=== PATIENT | male | born 1995 | race Caucasian/White ===

== ENCOUNTER 2017-06-30 01:28 | Emergency (ER) | payer BC ==
[~2017-06-30] VITALS: Ht 182.9 cm; Wt 64.0 kg
[2017-06-30 01:32] VITALS: TEMP 36.7; Ht 182.9 cm; Wt 64.0 kg
--- NOTE | 2017-06-30 02:28 | EMERGENCY ROOM VISIT NOTE ---
History Report prepared by [place]: Tamie De Guzman Under the Supervision of: Dr. Shad Carroll D.O. First contact with patient: 01:40 Chief Complaint: RESPIRATORY PROBLEMS Stated Complaint: LEFT SIDE AND BACK PAIN/SHORT OF BREATH Nursing Triage Summary: patient brought in by ems patient reports left side/back pain with deep breath for an hour patient reports being sick for 2 days with bodyaches, fever,nausea patient reports taking motrin and "medicine for nausea,some prescription" History of Present Illness The patient is a 21 year old male who presents to the Emergency Room with complaints of persistent SOB starting 1 hour ago. The patient was watching [employer] when he started having SOB. He denies any coughing or palpitations. He states he feels anxious. He does not smoke. He denies any history of heart or lung problems. Source of History: patient Onset: 1 hour ago Position: other (global) Quality: other (SOB) Timing: other (persistent) Associated Symptoms: No cough Note: Pt reports feeling anxious. Pt denies palpitations. Review of Systems See HPI for pertinent positives and negatives. A total of ten systems were reviewed and were otherwise negative. Past Medical & Surgical Medical Problems: (1) Rotavirus infection Family History No pertinent family history stated. Social History Smoking Status: Never Smoker Occupation Status: [employer] student Current/Historical Medications Scheduled Azithromycin (Zithromax Z-Mehdi), 1 PKT PO UD Allergies Coded Allergies: No Known Allergies (Unverified , 06/30/17) Physical Exam Vital Signs Date Time Temp Pulse Resp B/P (MAP) Pulse Ox O2 Delivery O2 Flow Rate FiO2 06/30/17 03:03 138/65 06/30/17 03:02 Nasal Cannula 2.0 06/30/17 03:02 Nasal Cannula 06/30/17 03:00 79 18 97 Nasal Cannula 2.0 06/30/17 01:33 116 06/30/17 01:32 36.7 113 20 136/63 97 Room Air Physical Exam GENERAL: Awake, alert, anxious-appearing, in no distress HENT: Normocephalic, atraumatic. Oropharynx unremarkable. EYES: Normal conjunctiva. Sclera non-icteric. NECK: Supple. No nuchal rigidity. FROM. No JVD. RESPIRATORY: Clear to auscultation. CARDIAC: Regular rate, normal rhythm. Extremities warm and well perfused. Pulses equal. ABDOMEN: Soft, non-distended. No tenderness to palpation. No rebound or guarding. No masses. RECTAL: Deferred. MUSCULOSKELETAL: Chest examination reveals no tenderness. The back is symmetrical on inspection without obvious abnormality. There is no CVA tenderness to palpation. No joint edema. LOWER EXTREMITIES: Calves are equal size bilaterally and non-tender. No edema. No discoloration. NEURO: Normal sensorium. No sensory or motor deficits noted. SKIN: No rash or jaundice noted. Medical Decision & Procedures ER Provider Diagnostic Interpretation: X-ray: Per my interpretation, radiologist review. Chest X-ray: Left lower lobe infiltrate. Radiology results as stated below per my review and [facility] radiologist interpretation: CTA Chest: Airspace consolidation in the lateral left lower lobe compatible with pneumonia. No pleural effusion or pneumothorax. CV structures are normal. No evidence of acute pulmonary embolism. Laboratory Results 06/30/17 01:40 Red Blood Count 4.68, Mean Corpuscular Volume 91.0, Mean Corpuscular Hemoglobin 31.4, Mean Corpuscular Hemoglobin Concent 34.5, Mean Platelet Volume 11.0, Neutrophils (%) (Auto) 62.6, Lymphocytes (%) (Auto) 17.7, Monocytes (%) (Auto) 19.1, Eosinophils (%) (Auto) 0.1, Basophils (%) (Auto) 0.4, Neutrophils # (Auto ) 4.72, Lymphocytes # (Auto) 1.34, Monocytes # (Auto) 1.44, Eosinophils # (Auto ) 0.01, Basophils # (Auto) 0.03 06/30/17 01:40 Test 06/30/17 01:40 White Blood Count 7.55 K/uL (4.8-10.8) Red Blood Count 4.68 M/uL (4.7-6.1) Hemoglobin 14.7 g/dL (14.0-18.0) Hematocrit 42.6 % (42-52) Mean Corpuscular Volume 91.0 fL (80-100) Mean Corpuscular Hemoglobin 31.4 pg (25-34) Mean Corpuscular Hemoglobin Concent 34.5 g/dl (32-36) Platelet Count 187 K/uL (130-400) Mean Platelet Volume 11.0 fL (7.4-10.4) Neutrophils (%) (Auto) 62.6 % Lymphocytes (%) (Auto) 17.7 % Monocytes (%) (Auto) 19.1 % Eosinophils (%) (Auto) 0.1 % Basophils (%) (Auto) 0.4 % Neutrophils # (Auto) 4.72 K/uL (1.4-6.5) Lymphocytes # (Auto) 1.34 K/uL (1.2-3.4) Monocytes # (Auto) 1.44 K/uL (0.11-0.59) Eosinophils # (Auto) 0.01 K/uL (0-0.5) Basophils # (Auto) 0.03 K/uL (0-0.2) RDW Standard Deviation 42.9 fL (36.4-46.3) RDW Coefficient of Variation 13.0 % (11.5-14.5) Immature Granulocyte % (Auto) 0.1 % Immature Granulocyte # (Auto) 0.01 K/uL (0.00-0.02) Anion Gap 9.0 mmol/L (3-11) Est Creatinine Clear Calc Drug Dose 99.6 ml/min Estimated GFR () 114.7 Estimated GFR (Non- 99.0 BUN/Creatinine Ratio 8.9 (10-20) Calcium Level 9.1 mg/dl (8.5-10.1) Total Bilirubin 0.9 mg/dl (0.2-1) Aspartate Amino Transf (AST/SGOT) 14 U/L (15-37) Alanine Aminotransferase (ALT/SGPT) 20 U/L (12-78) Alkaline Phosphatase 67 U/L (45-117) Total Protein 8.0 gm/dl (6.4-8.2) Albumin 4.3 gm/dl (3.4-5.0) Globulin 3.7 gm/dl (2.5-4.0) Albumin/Globulin Ratio 1.2 (0.9-2) Laboratory results reviewed by me Medications Administered Medications (Trade) Dose Ordered Sig/Mary Carmen Route Start Time Stop Time Status Last Admin Dose Admin Ceftriaxone Sodium (Rocephin Inj) 1 gm NOW STAT IV 06/30/17 02:40 06/30/17 02:42 DC 06/30/17 02:40 1 GM Azithromycin 500 mg/Dextrose 255 ml @ 125 mls/hr ONE ONCE IV 06/30/17 02:45 06/30/17 04:47 06/30/17 03:20 125 MLS/HR ED Course 0146: The patient was evaluated in room A11B. A complete history and physical exam was performed. 0240: Rocephin Inj 1 gm IV. 0245: Azithromycin 500 mg/Dextrose 255 ml @ 125 mls/hr IV. 0307: I reevaluated the patient. He reports that he does not drink, do drugs, or smoke. 0440: I reevaluated the patient. Discussed results and discharge instructions: He verbalized understanding and agreement. The patient is ready for discharge. Medical Decision Differential diagnoses include but are not limited to; bronchitis, anxiety, pneumonia, panic attack. Patient was started on IV antibiotics, patient has a pulmonary infiltrate in the left lower lobe. Patient was CAT scan which was positive for pneumonia but no pulmonary embolism. I've reevaluated the patient at 4:45 AM is resting in no distress and discussed the workup Medication Reconcilliation Current Medication List: was personally reviewed by me Blood Pressure Screening Patient's blood pressure: Elevated blood pressure Blood pressure disposition: Elevated BP felt to be situational Impression Primary Impression: Pneumonia Scribe Attestation The scribe's documentation has been prepared under my direction and personally reviewed by me in its entirety. I confirm that the note above accurately reflects all work, treatment, procedures, and medical decision making performed by me. Departure Information Dispostion Home / Self-Care Prescriptions Azithromycin (ZITHROMAX Z-MEHDI) 250 Mg Tab 1 PKT PO UD, #1 PKT Prov: Shad Carroll, DO 06/30/17 Referrals No Doctor, Assigned (PCP) Patient Instructions ED Pneumonia Adult, My [facility] Additional Instructions Follow-up with your primary care physician the next week. Get repeat chest x- ray after antibiotics. Return for worsening of symptoms such as shortness of breath or any concerns
[2017-06-30] MEDS ORDERED: CEFTRIAXONE SOD INJ 1 GM ADDVIAL IV STA (02:40)
[2017-06-30] MEDS ORDERED: AZITHROMYCIN IV 500 MG in DEXTROSE 5% 250ML 250 ML IV ONE (02:45)
[2017-06-30 02:55] LABS: BASO % 0.4 %; BASO ABS # 0.03 K/uL (0-0.2); COMPLETE YES; EOS % 0.1 %; HEMATOCRIT 42.6 % (42-52); IG% 0.1 %; LYMPH % 17.7 %; LYMPH ABS # 1.34 K/uL (1.2-3.4); MEAN CORPUSCULAR HEMOGLOBIN 31.4 pg (25-34); MEAN CORPUSCULAR HGB CONC 34.5 g/dl (32-36); MONO % 19.1 %; NEUT % 62.6 %; PLATELET COUNT 187 K/uL (130-400); RED BLOOD COUNT 4.68 M/uL (4.7-6.1); WHITE BLOOD COUNT 7.55 K/uL (4.8-10.8)
[2017-06-30 03:07] LABS: BUN/CREATININE RATIO 8.9 (10-20); CALCIUM 9.1 mg/dl (8.5-10.1); CREATININE 1.08 mg/dl (0.60-1.40)
[2017-06-30 03:14] LABS: ALB/GLOB RATIO 1.2 (0.9-2); POTASSIUM 3.3 mmol/L (3.5-5.1)
[2017-06-30] MEDS ORDERED: OPTIRAY 320 IV PRN (03:30)
[2017-06-30] MEDS ORDERED: AZITTAB PO (04:45)
[2017-06-30 05:05] VITALS: BP 132/76; PULSE 93; O2SAT 100
--- NOTE | 2017-06-30 07:15 | DIAGNOSTIC IMAGING REPORT ---
(CHEST FOR PE) ANGIO WITH CT DOSE: 234.85 mGy.cm HISTORY: 21 years-old Male presents with acute cough, shortness of breath and left-sided chest pain TECHNIQUE: Multiple CTA images of the chest were obtained after the intravenous administration of 92 ml Optiray 320. Coronal and sagittal MIPS were obtained from the axial data set and were submitted for review. A dose lowering technique was utilized adhering to the principles of ALARA. COMPARISON: Chest radiograph of same day. FINDINGS: CTA: There is adequate opacification of the pulmonary arteries to the level of the distal segmental branches without convincing evidence of acute pulmonary embolism. Thoracic aorta is normal in both course and caliber without dissection or aneurysm.Heart size is normal. CT CHEST: No dominant thyroid nodule is seen. No pathologically adenopathy by CT size criteria. Mildly prominent left hilar lymph nodes measuring up to 1.2 x 0.9 cm are likely reactive . There is no pneumothorax or pleural effusion. Peripheral consolidative opacity with central air bronchograms and ill-defined margins is present within the lateral basal segment left lower lobe, 6.3 x 2.9 cm. Centrilobular groundglass opacities are noted distally to this area. No additional airspace opacities identified. The right lung is clear. Central airways are patent. The imaged upper abdominal structures are normal. The osseous structures appear intact. IMPRESSION: 1. Peripheral airspace consolidation with central air bronchograms and ill-defined margins involves the lateral basal segment left lower lobe measuring up to 6.3 cm with adjacent centrilobular groundglass opacities also noted suggesting bronchopneumonia. Follow-up imaging to document resolution recommended. 2. Mild left hilar adenopathy, likely reactive. 3. No acute aortic pathology or evidence of pulmonary thromboembolic disease. The above report was generated using voice recognition software. It may contain grammatical, syntax or spelling errors. Electronically signed by: Erik Mathew M.D. 06/30/2017 7:14 AM Dictated Date/Time: 06/30/2017 7:07 AM
--- NOTE | 2017-06-30 07:48 | DIAGNOSTIC IMAGING REPORT ---
CHEST ONE VIEW PORTABLE HISTORY: 21 years-old Male cough acute cough COMPARISON: CTA of the chest of same day TECHNIQUE: Portable AP view of the chest FINDINGS: Cardiomediastinal and hilar silhouettes are within normal limits. No pneumothorax or pleural effusion. Focal masslike consolidative opacity measuring 4.4 x 4.1 cm is seen within the left lower lobe. Right lung is clear. The bones of the chest are grossly intact. Bone islands of the right shoulder incidentally noted. IMPRESSION: Focal consolidative opacity measuring up to 4.4 cm within the left lower lobe suggests pneumonia. Correlate with CTA of the chest of same day. The above report was generated using voice recognition software. It may contain grammatical, syntax or spelling errors. Electronically signed by: Erik Mathew M.D. 06/30/2017 7:46 AM Dictated Date/Time: 06/30/2017 7:45 AM
== END 2017-06-30 05:10 | disposition home or self-care (01) ==
LOC: EDBD 01:28 → C.EDA 01:30
DX: J18.9 Pneumonia, unspecified organism (principal); Z86.19 Personal history of other infectious and parasitic diseases; Z88.1 Allergy status to other antibiotic agents